=== PATIENT | male | born 2000 | race Caucasian/White ===

== ENCOUNTER 2023-04-29 23:22 | Emergency (ER) | payer OTHER ==
[~2023-04-29] VITALS: Ht 185.4 cm; Wt 88.5 kg
--- NOTE | 2023-04-29 23:27 | ER.PDOC ---
General Chief Complaint: Requesting Medical Care Stated Complaint: DIZZINESS TRAVEL OUT OF US: No Time seen by MD: 23:25 Source: patient Exam Limitations: no limitations History of Present Illness Severity: mild (Using SARMS(androgen modulator) No drugs) Allergies: Coded Allergies: No Known Allergies (Unverified , 02/03/16) Home Meds No Active Prescriptions or Reported Meds Past Medical History Medical History: no pertinent history Surgical History: no surgical history Family History Significant Family History: no pertinent family hx Social History Smoking: non-smoker Reviewed Nursing Reviewed: Vital Signs, Abn. Noted Review of Systems Constitutional: no symptoms reported EENTM: no symptoms reported Respiratory: no symptoms reported Cardiovascular: chest pain, other (fainty) Gastrointestinal: no symptoms reported Genitourinary: no symptoms reported Musculoskeletal: no symptoms reported Skin: no symptoms reported Psychiatric/Neurological: see HPI Hematologic/Lymphatic: no symptoms reported Immunological/Allergic: no symptoms reported All Other Systems: Reviewed and Negative Physical Exam General Appearance: No Apparent Distress, WD/WN, Other (muscular male) EENT: eyes nml inspection, nml ENT inspection Respiratory: chest non-tender, lungs clear CVS: reg rate & rhythm, no murmur, other (no chest pain) Gastrointestinal: No Organomegaly, No Pulsatile Mass Back: Normal Inspection Extremities: Normal Range of Motion 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 Skin: Normal Color Lymphatic: No Adenopathy Results/Orders Results/Orders Orders - JUANITA MELÉNDEZ MD EKG (04/29/23 23:33) Xr Chest 1v (04/29/23 23:33) Lidocaine Hcl (Lidocaine Hcl Viscous) (04/29/23 23:43) Mag Hydrox/Aluminum Hyd/Simeth (Mylanta) (04/29/23 23:44) Mag Hydrox/Aluminum Hyd/Simeth (Mylanta) (04/29/23 23:47) Lidocaine Hcl (Lidocaine Hcl Viscous) (04/29/23 23:47) Vital Signs Date Time Temp Pulse Resp B/P (MAP) Pulse Ox O2 Delivery O2 Flow Rate FiO2 04/29/23 23:38 98.6 67 18 04/29/23 23:38 98.6 67 18 163/93 (116) 99 Room Air* 0 21 04/29/23 23:38 98.6 67 18 99 Administered Medications Medications (Trade) Dose Ordered Sig/Alba Route PRN Reason Start Time Stop Time Status Last Admin Dose Admin Lidocaine HCl (Lidocaine HCl Viscous) 15 ml STAT STAT MM 04/29/23 23:47 04/29/23 23:50 DC 04/29/23 23:51 15 ML Progress Progress feltbetter with GI cocktail EKG/XRAY/CT/US EKG: NSR, rhythm, nonspecific ST T wave chg, ST depression (lead 3 only) XRAY: chest XRAY Comments: neg per chest result per radiology read ER DEPART Departure Time of Disposition: 23:56 Disposition: 01 HOME / SELF CARE / HOMELESS Impression: Primary Impression: Esophageal spasm Condition: Stable Referrals: PCP,UNKNOWN (PCP) PRIMARY CARE PROVIDER Scripts No Active Prescriptions or Reported Meds Comments protonix stop the androgen agonists antacid of choice Duration or Time Spent with Pa: 15 JUANITA MELÉNDEZ MD April 29, 2023 23:27
--- NOTE | 2023-04-29 23:30 | NUR ---
ARRIVAL PT AMBULATORY INTO ER WITH NO DISTRESS ON RA. C/O INTERMITTENT CHEST SQUEEZING/PRESSURE OVER THE LAST WEEK. ALSO COMPLAINS OF LEFT ARM TINGLING. STATES SYMPTOMS ARE EXACERBATED BY ACTIVITY. PT ADMITS TO USE OF SARMS FOR "PERFORMANCE ENHANCEMENT." HISTORY AND STATUS OBTAINED. VS AND ASSESSMENT COMPLETE CHARTED. DR MELÉNDEZ NOTIFIED OF PT ARRIVAL.
[2023-04-29 23:38] VITALS: BP 163/93
--- NOTE | 2023-04-29 23:42 | PCM.EKG ---
[facility] Test Date: 2023-04-29 Pat Name: ALYSE WILSON Department: ER Room: Gender: Male Manager Payment: CG : 2000 Requested By: JUANITA SHIN Order Number: [id number] Reading MD: Juanita Shin Measurements Intervals [place] Rate: 63 P: 5 TX: 165 QRS: -38 QRSD: 100 T: 1 QT: 375 QTc: 384 Interpretive Statements Sinus rhythm Left axis deviation ST elev, probable normal early repol pattern normal qrs as well as TX interval No ectopy. Age normal EKG Electronically Signed On 04-30-2023 02:18:53 CDT by Juanita Shin Please click the below link to view image of tracing.
[2023-04-29] MEDS ORDERED: LIDOCAINE HCL VISCOUS ONE (23:43)
[2023-04-29] MEDS ORDERED: MYLANTA ONE (23:44)
[2023-04-29] MEDS: MYLANTA PO STA (23:51)
[2023-04-29] MEDS: LIDOCAINE HCL VISCOUS MM STA (23:51)
--- NOTE | 2023-04-29 23:51 | DIREP ---
PROCEDURE:CHEST 1 VIEW COMPARISON:None. INDICATIONS:chest pain FINDINGS: LUNGS/PLEURA:No confluent pulmonary infiltrate. No effusions. No pneumothorax. VASCULATURE:Unremarkable pulmonary vasculature. CARDIAC:No cardiac silhouette abnormality or cardiomegaly. MEDIASTINUM:No visible mass or adenopathy. BONES:No fracture or visible bony lesion. OTHER:Negative. CONCLUSION: 1. Unremarkable chest radiographs. Dictated by: Halina Lake MD on 04/29/2023 at 11:49 PM
[2023-04-29 23:53] VITALS: BP 144/77
== END 2023-04-29 23:59 | disposition home or self-care (01) ==
LOC: ER 23:22
DX: K22.4 Dyskinesia of esophagus (principal)
CPT/HCPCS: 99283; 71045; 93005; J3490

== ENCOUNTER 2024-01-03 00:34 | Emergency (ER) | payer OTHER ==
[2024-01-03 00:47] VITALS: BP 147/97; PULSE 66; RESP 18; TEMP 98; O2SAT 97
[2024-01-03 02:23] VITALS: BP 145/89; PULSE 60; RESP 18; O2SAT 97
== END 2024-01-03 02:25 | disposition home or self-care (01) ==
LOC: ER 00:34
DX: R07.89 Other chest pain (principal)
CPT/HCPCS: 99283; 71101-LT